=== PATIENT | female | born 1985 | race Caucasian/White ===

== ENCOUNTER 2018-01-16 21:49 | Inpatient (IN) | payer OTHER ==
[2018-01-16] MEDS ORDERED: ePHEDrine SULFATE IV PRN (22:04)
[2018-01-16] MEDS ORDERED: BRETHINE SUB-Q PRN (22:04)
[2018-01-16] MEDS ORDERED: POLYCILLIN/NS 2 GM/100 ML 2 GM/100 ML BAG IV ONE (22:04)
[2018-01-16] MEDS ORDERED: LACTATED RINGERS 1,000 ML IV SCH (23:00)
[2018-01-16] MEDS ORDERED: PITOCin/NS 20 UNIT/1000ML DRIP 20 UNITS/1,000 ML BAG IV SCH (23:00)
--- NOTE | 2018-01-16 23:29 | History and Physical Report ---
History of Present Illness Date of examination: 01/16/18 Date of admission: 01/16/2018 Chief complaint: Contractions and vaginal bleeding starting 1 hour prior to arrival. History of present illness: 32 year old presents to L&D with complaint of regular contractions and vaginal bleeding which started an hour prior to arrival. Patient reports she saw small amount of bleeding when wiping. Patient denies leaking of fluid. Patient reports decreased movement for the past few days. Patient received care at [facility]. LMP uncertain. EDC 01/21/18. Patient has gestational diabetes which has been diet controlled. labs are as follows: A+, antibody screen negative, rubella immune, hepatitis B surface antigen negative, RPR nonreactive, HIV negative, chlamydia negative, gonorrhea negative, quad screen negative, diabetes screen 106, GBS positive. Past History Past Medical History: no pertinent history Past Surgical History: no surgical history [employer] History: denies: abnormal PAP smear, chlamydia, gonorrhea Family/Genetic History: none Social history: no significant social history, lives with family, smoking, prescription drug abuse, full code - Obstetrical History Expected Date of Delivery: 01/21/18 Actual Gestation: 39 Week(s) 3 Day(s) : 4 Para: 3 Hx # Term Pregnancies: 4 Number of Pregnancies: 0 Spontaneous Abortions: 0 Medications and Allergies Allergies Allergy/AdvReac Type Severity Reaction Status Date / Time No Known Allergies Allergy Verified 07/13/13 12:30 Home Medications Medication Instructions Recorded Confirmed Last Taken Type Pnv,Calcium 72/Iron/Folic Acid 1 each PO DAILY 07/13/13 07/13/13 07/12/13 21:00 History [Pnv Plus Multivit Tab] 1 Ferrous Sulfate [Feosol 325 MG tab] 325 mg PO BID #60 tablet 07/14/13 Unknown Rx Ibuprofen [Motrin 600 MG tab] 800 mg PO Q6HR PRN #30 tablet 07/14/13 Unknown Rx Vit-Fe Fumar-FA [ 1 each PO QDAY #30 tablet 07/14/13 Unknown Rx Vitamin] Active Meds: Active Medications Ephedrine Sulfate (Ephedrine Sulfate) 10 mg IV Q2M PRN PRN Reason: Hypotension Lactated Ringer's (Lactated Ringers) 1,000 mls @ 125 mls/hr IV DIRECT KATARINA Oxytocin/Sodium Chloride (Pitocin/Ns 20 Unit/1000ml Drip) 20 units in 1,000 mls @ 125 mls/hr IV DIRECT KATARINA Ampicillin Sodium (Ampicillin/Ns 1 Gm/50 Ml) 1 gm in 50 mls @ 100 mls/hr IV Q4H KATARINA; Protocol Terbutaline Sulfate (Brethine) 0.25 mg SUB-Q ONCE PRN PRN Reason: Hyperstimulation/Hypertonicity Review of Systems All systems: negative (regular uterine contractions) - Physical Exam Breasts: Positive: deferred Cardiovascular: Regular rate Lungs: Positive: Clear to auscultation, Normal air movement Abdomen: Positive: normal appearance, soft. Negative: distention, tenderness, guarding Genitourinary (Female): Positive: normal external genitalia, normal perenium Vagina: Positive: normal moisture Cervix: Negative: lesion, discharge Uterus: Positive: enlarged. Negative: nodular, tender Extremities: Positive: normal, edema (bilateral pedal edema). Negative: tenderness - Obstetrical FHR: category 1 Uterine Contraction Monitor Mode: External Cervical Dilatation: 4 Cervical Effacement Percentage: 75 station: -3 Uterine Contraction Pattern: Regular Uterine Contraction Intensity: Moderate Results Result Diagrams: 01/16/18 23:24 All other labs normal. Assessment and Plan A: at 39 2/7 weeks gestation. Labor. GBS positive. P: Admit. GBS prophylaxis. Anticipate . Ultrasound to check placenta.
[2018-01-16 23:49] LABS: Hematocrit 32.9 % (30.3-42.9); Hemoglobin 11.5 gm/dl (10.1-14.3); Mean Corpuscular HGB Conc 35 % (30-34); Mean Corpuscular Hemoglobin 31 pg (28-32); Mean Corpuscular Volume 87 fl (79-97); Red Blood Count 3.77 M/mm3 (3.65-5.03)
--- NOTE | 2018-01-16 23:55 | Ultrasound Report ---
FINAL REPORT PROCEDURE: US OB FOLLOW UP TECHNIQUE: Real-time transabdominal sonography of the uterus, placenta, amniotic fluid, adnexa, and fetus was performed with image documentation. Measurements were obtained to determine age/size. M-mode Doppler was used to document heartbeat. CPT 19695 HISTORY: vaginal bleeding COMPARISON: No prior studies are available for comparison. FINDINGS: ADDITIONAL GESTATION: None. GENERAL: IUP: Single living intrauterine . Position: Cephalic Placental position: Anterior with grade 2 maturity, without previa. Amniotic fluid volume: Normal with an amniotic fluid index of 9.2 centimeters MATERNAL: Uterus: Within normal limits. Cervical length: cm. Internal Os: Closed. FETUS: Heart rate and rhythm: 156 beats per minute, regular MEASUREMENTS: BPD: 9.6 centimeters corresponding to 39 weeks and 2 days HC: 34.8 centimeters corresponding to 40 weeks and 2 days AC: 34.2 centimeters corresponding to 38 weeks and 0 days FL: 7.4 centimeters corresponding to 38 weeks and 0 days Mean Gestational Age (composite criteria): 38 weeks and 6 days Ratio biometry: Normal. Estimated Weight: 3518 grams. IMPRESSION: Single intrauterine gestation at 38 weeks and 6 days. Estimated due date: 2017.
--- NOTE | 2018-01-16 23:55 | Ultrasound Report ---
FINAL REPORT PROCEDURE: US OB BPP WO NON-STRESS TECHNIQUE: Sonographic evaluation for breathing, movement, tone, and amniotic fluid volume was performed. CPT 65584 HISTORY: vaginal bleeding COMPARISON: No prior studies are available for comparison. FINDINGS: Amniotic fluid volume: Normal-score 2. At least one vertical pocket > 2 cm or more in vertical axis. breathing: Normal-score 2. movement: Normal-score 2. tone: Normal. Score: 8 of 8. IMPRESSION: Normal biophysical profile.
[2018-01-17 00:04] LABS: Platelet Count 131 K/mm3 (140-440)
[2018-01-17] MEDS ORDERED: SUBLIMAZE IV ONE (02:20)
[2018-01-17] MEDS ORDERED: AMPICILLIN/NS 1 GM/50 ML 1 GM/50 ML BAG IV SCH (03:00)
[2018-01-17] MEDS ORDERED: DULCOLAX PR PRN (05:17)
[2018-01-17] MEDS ORDERED: TUCKS PAD TP PRN (05:17)
[2018-01-17] MEDS ORDERED: MILK OF MAGNESIA PO PRN (05:17)
[2018-01-17] MEDS ORDERED: LANSINOH TP PRN (05:17)
[2018-01-17] MEDS ORDERED: ZOFRAN IV PRN (05:17)
[2018-01-17] MEDS ORDERED: PHENERGAN PO PRN (05:17)
[2018-01-17] MEDS ORDERED: NORCO 5/325 PO PRN (05:19)
--- NOTE | 2018-01-17 05:26 | Procedure Note ---
OB Delivery Note - Delivery Date of Delivery: 01/17/18 Surgeon: IZABELLA STEWART Estimated blood loss: 200cc - Vaginal Delivery presentation: vertex Delivery position: OA Delivery induction: none Delivery monitor: external FHT, external uterine Route of delivery: Delivery placenta: spontaneous Delivery cord: nuchal cord, 3 umbilical vessels Episiotomy: none Delivery laceration: none Anesthesia: none Delivery comments: of liveborn male over intact perineum. Baby placed immediately on maternal chest at . Spontaneous cry and respirations. 3 vessel cord double clamped and cut. Spontaneous delivery of intact placenta and membranes by skinner mechanism. EBL 200 cc. Pitocin to IV fluids after delivery of placenta. Fundus firm and midline. Vaginal sweep negative. No lacerations noted. Sponge count correct.
[2018-01-17] MEDS ORDERED: SODIUM CHLORIDE FLUSH SYRINGE 10 ML IV PRN (06:00)
--- NOTE | 2018-01-17 11:00 | Progress Note ---
Assessment and Plan A: day of delivery S/P . P: Encouraged ambulation. Supplement with iron. Anticipate discharge tomorrow. Subjective - Subjective Date of service: 01/17/18 Principal diagnosis: day of delivery S/P Interval history: day of delivery S/P . Patient reports small amount of lochia. She denies pain. She states she is voiding without difficulty. and bottlefeeding. Undecided regarding contraception. Patient denies headache, cough, chest pain, abdominal pain, leg pain, heavy bleeding, or any other symptoms. Patient reports: appetite normal, voiding normally, pain well controlled, flatus , ambulating normally [place]: doing well Objective - Vital Signs Latest vital signs: Vital Signs Temp Pulse Resp BP 01/17/18 06:37 75 132/66 01/17/18 06:22 71 129/64 01/17/18 06:07 71 135/67 01/17/18 05:52 80 135/68 01/17/18 05:37 68 147/65 01/17/18 05:23 80 140/59 01/17/18 05:15 98.8 F 01/17/18 05:08 82 132/60 01/17/18 04:39 77 158/72 01/17/18 04:09 85 156/87 01/17/18 03:39 88 131/82 01/17/18 03:08 75 123/61 01/17/18 02:38 70 109/55 01/17/18 02:36 18 01/16/18 23:56 73 138/80 01/16/18 23:47 98.9 F 20 Intake and Output 01/16/18 01/17/18 01/17/18 23:59 07:59 15:59 Other: Weight 70.307 kg Estimated Blood Loss 200 - Exam Breasts: Present: deferred Cardiovascular: Present: Regular rate, Normal S1, Normal S2 Lungs: Present: Clear to auscultation Abdomen: Present: normal appearance, soft, normal bowel sounds. Absent: distention, tenderness, guarding, rigidity Uterus: Present: normal, firm, fundal height below umbilicus. Absent: bogginess , tenderness Extremities: Present: normal. Absent: tenderness, edema - Labs Labs: Abnormal lab results 01/16/18 Range/Units 23:24 MCHC 35 H (30-34) % Plt Count 131 L (140-440) K/mm3
[2018-01-17] MEDS ORDERED: FEOSOL PO ONE (11:01)
[2018-01-17] MEDS: MOTRIN PO SCH ×3 (12:15→23:10)
[2018-01-17 13:25] LABS: Alanine Aminotransferase 8 units/L (7-56); Albumin 2.8 g/dL (3.9-5); BUN/Creatinine Ratio 20; Blood Urea Nitrogen 6 mg/dL (7-17); Calcium 8.4 mg/dL (8.4-10.2); Hemolysis Index 19
[2018-01-17 16:41] LABS: Hematocrit 30.7 % (30.3-42.9); Hemoglobin 10.4 gm/dl (10.1-14.3)
[2018-01-18] MEDS: MOTRIN PO SCH ×3 (05:19→18:30)
--- NOTE | 2018-01-18 09:55 | Event Note ---
Date: 01/18/18 day 1 S/P spontaneous vaginal delivery. Doing well. . Voiding without difficulty. Ambulating well. Tolerating a regular diet without nausea or vomiting. Patient reports small amount of lochia. Patient denies headache, cough, chest pain, SOB, leg pain, or heavy bleeding.
--- NOTE | 2018-01-18 10:02 | Progress Note ---
Assessment and Plan A: day 1 S/P spontaneous vaginal delivery. P: Plan discharge tomorrow. Subjective - Subjective Date of service: 01/18/18 Principal diagnosis: day 1 S/P spontaneous vaginal delivery Interval history: day 1 S/P spontaneous vaginal delivery. Doing well. . Patient reports a small amount of lochia. Voiding without difficulty. Ambulating well. Tolerating a regular diet. Patient denies headache, chest pain, cough, shortness of breath, abdominal pain , leg pain, or heavy bleeding. Patient reports: appetite normal, voiding normally, pain well controlled, flatus , ambulating normally [place]: doing well Objective - Vital Signs Latest vital signs: Vital Signs Temp Pulse Resp BP BP Pulse Ox 01/18/18 00:30 98 F 68 18 110/67 01/17/18 20:30 98.6 F 78 18 109/69 01/17/18 16:08 98.6 F 80 20 115/75 91 01/17/18 11:48 98.9 F 75 18 126/73 94 Intake and Output 01/17/18 01/18/18 01/18/18 23:59 07:59 15:59 Intake Total 300 Output Total 100 Balance -100 300 Intake: Intake, Free Water 300 Output: Urine 100 Void 100 Other: Total, Output Amount 100 # Voids Void 2 - Exam Cardiovascular: Present: Regular rate, Normal S1, Normal S2 Lungs: Present: Clear to auscultation Abdomen: Present: normal appearance, soft, normal bowel sounds. Absent: distention, tenderness, guarding Uterus: Present: normal, firm, fundal height below umbilicus. Absent: bogginess , tenderness Extremities: Present: normal. Absent: tenderness, edema - Labs Labs: Abnormal lab results 01/17/18 Range/Units 12:51 Carbon Dioxide 18 L (22-30) mmol/L BUN 6 L (7-17) mg/dL Creatinine 0.3 L (0.7-1.2) mg/dL Glucose 113 H (65-100) mg/dL Alkaline Phosphatase 180 H (35-129) units/L Total Protein 5.4 L (6.3-8.2) g/dL Albumin 2.8 L (3.9-5) g/dL
[2018-01-18] MEDS ORDERED: BOOSTRIX IM ONE (15:00)
--- NOTE | 2018-01-18 18:49 | Discharge Summary ---
Providers - Providers Date of Admission: 01/16/18 23:40 Date of discharge: 01/18/18 Attending physician: EVA BAHENA MD Primary care physician: EVA BAHENA MD Hospitalization Reason for admission: active labor Delivery: Episiotomy: none Laceration: none Other procedures: none complications: none Discharge diagnosis: IUP at term delivered [place] baby: male Pertinent studies: Labs Hospital course: Normal hospital course. Condition at discharge: Good Disposition: DC-01 TO HOME OR SELFCARE - Discharge Diagnoses (1) Term delivered Status: Acute Plan - Provider Discharge Summary Activity: routine, no sex for 6 weeks, no heavy lifting 4 weeks, no strenuous exercise Diet: routine Instructions: routine Additional instructions: Continue taking your iron supplements and vitamins at home. Call your doctor immediately for: * Fever > 100.5 * Heavy vaginal bleeding ( >1 pad per hour) * Severe persistent headache * Shortness of breath * Reddened, hot, painful area to leg or breast - Follow up plan Follow up: EVA BAHENA MD [Primary Care Provider] - 6 Weeks
[2018-01-19 01:41] VITALS: BP 101/67
== END 2018-01-18 21:20 | disposition home or self-care (01) | DRG 775 ==
LOC: TRG 21:49 → LD 23:40 → OB 01-17 09:43
PROVIDERS: ADMIT Obstetrics & Gynecology; ATTEND Obstetrics & Gynecology
PROC: 10E0XZZ Delivery of Products of Conception, External Approach (ICD-10-PCS; principal; 2018-01-17)
PROC: 3E0234Z Introduction of Serum, Toxoid and Vaccine into Muscle, Percutaneous Approach (ICD-10-PCS; 2018-01-18)
DX: O99.824 Streptococcus B carrier state complicating childbirth (principal); O24.420 Gestational diabetes mellitus in childbirth, diet controlled; Z37.0 Single live birth; Z3A.39 39 weeks gestation of pregnancy; O69.81X0 Labor and delivery complicated by cord around neck, without compression, not applicable or unspecified; Z23 Encounter for immunization
CPT/HCPCS: 36415; 76816; 76819; 80053; 85014; 85018; 85027; 86592; 86706; 86803; 86850; 86900; 86901; 87806; 90471; 90715; J0290; J2590; J3010; J7120

== ENCOUNTER 2020-10-25 13:22 | Inpatient (IN) | payer OTHER ==
[2020-10-28 11:47] VITALS: BP 115/58
== END 2020-10-28 11:55 | disposition home or self-care (01) | DRG 807 ==
LOC: TRG 13:22 → APU 13:24 → LD 18:21 → TRG 18:29 → LD 10-26 04:47 → OB 10-26 07:02
PROVIDERS: ADMIT Obstetrics & Gynecology; ATTEND Obstetrics & Gynecology
PROC: 10E0XZZ Delivery of Products of Conception, External Approach (ICD-10-PCS; principal; 2020-10-26)
DX: O77.0 Labor and delivery complicated by meconium in amniotic fluid (principal); Z37.0 Single live birth; D64.9 Anemia, unspecified; Z20.822 Contact with and (suspected) exposure to COVID-19; Z3A.38 38 weeks gestation of pregnancy
CPT/HCPCS: 36415; 59025; 76815; 76819; 85014; 85018; 85027; 86592; 86850; 86900; 86901; 96360; 96361; 96372; 99211; G0378; G0463; J0595; J2210; J7120; U0003